=== PATIENT | female | born 1945 | race African-American/Black ===

== ENCOUNTER 2016-09-25 13:20 | Inpatient (IN) | payer OTHER ==
[~2016-09-25] VITALS: Ht 170.2 cm; Wt 83.5 kg
--- NOTE | ~2016-09-25 | HC ---
[facility] [place] [address] CONSULTATION Name: BRAYAN JANG Room #: 456-P [facility] IN .R.#: [id number] Admission: 09/25/16 Attend Phys: Shivani Jiménez MD Discharge: 09/26/16 Date of : 49 Report #: [id number] THIS REPORT FOR: //name// CC: Sarah Jiménez DATE OF SERVICE: 09/25/2016 TYPE OF REPORT: Nephrology consultation. ATTENDING PHYSICIAN: Shivani Jiménez M.D. REASON FOR CONSULTATION: [id number]-[id number] renal failure. HISTORY OF PRESENT ILLNESS: This patient had surgery for ovarian cancer, complete hysterectomy 3 years ago. At that time, she refused chemotherapy. She has had recurrence this year and elected for hospice and she has been on hospice with comfort measures for the last 3 months and as far as we know has had normal renal function. She has become progressively ill with nausea and vomiting, poor appetite and poor intake. She has had progressive swelling of her lower extremities, decreased urine output and weakness and comes to the Emergency Room and was found to have potassium of 7, creatinine of 10.8 and BUN of 67. CT scan shows marked bilateral hydronephrosis with infiltrating tumor mass throughout the pelvis including the rectosigmoid, bladder and ureters. She has retroperitoneal nodes as well. PAST MEDICAL HISTORY: Aside from the ovarian cancer, she has been reasonably okay. She has had some history of hypertension in the past. 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 ALLERGIES: Reportedly to PENICILLIN. HOME MEDICATIONS: Include thyroid replacement and omeprazole. She has been on oxycodone through the hospice. REVIEW OF SYSTEMS: GENERAL: She has been feeling poorly. EYES: Her vision is reasonably good. ENT: Hearing okay. Swallows okay. ENDOCRINE: No diabetes or thyroid disease. RESPIRATORY: She was short of breath early, but it is better now. CARDIAC: She has had no chest pain, angina, myocardial infarction or other heart problems. GASTROINTESTINAL: No nausea, vomiting or diarrhea. [facility] [address] [place] [address] CONSULTATION Name: LAINEBRAYAN Room #: 456-P [facility] [id number] Admission: 09/25/16 Attend Phys: Shivani Jiménez MD Discharge: 09/26/16 Date of : 49 Report #: [id number] GENITOURINARY: She has had the decreased urination as mentioned. No history of renal stone. NEUROLOGICAL: No seizure, syncope or stroke. PHYSICAL EXAMINATION: VITAL SIGNS: This is an ill-appearing woman. She is quite tremulous and weak. SKIN: Otherwise, unremarkable. SKELETAL: Extremely swollen from the waist on down with pitting edema. HEENT: Extraocular movements are full. Vision is intact. Hearing is intact. No scleral icterus. Mucous membranes are dry. NECK: Veins are flat. CHEST: Clear. HEART: Regular. ABDOMEN: Shows a firm mass in the lower abdomen, somewhat tender. EXTREMITIES: Again showed pitting edema. NEUROLOGICAL: Diffuse weakness. LABORATORY DATA: Remarkable for a hemoglobin of 9.3, white count 9.6 and platelets 249. Sodium 136, potassium 7, chloride 100, bicarbonate 25, creatinine 10.8 and BUN 67. ASSESSMENT AND PLAN: Davgn-wa-lyawsuv kidney disease. 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 She has been on hospice, recently recommended palliative care, also talked about the possibly of dialysis and/or nephrostomy tube, both of which would likely palliate the situation for a short period of time but will not alleviate her ongoing and difficult problem and terminal situation. We will certainly leave this decision up to the patient and her family and we will go from there. <ELECTRONICALLY SIGNED> By: Zoltan Gonzalez MD 10/08/16 1126 1757 0100 Zoltan Gonzalez MD /nt
--- NOTE | ~2016-09-25 | EKG ---
[address] [place] [address] ELECTROCARDIOGRAM REPORT Name: JANGBRAYAN Room #: [facility]#: [id number] Admission: 09/25/16 Attend Phys: Discharge: Date of : 49 Report #: [id number] THIS REPORT FOR: //name// [facility] ED Test Date: 2016-09-25 Test Time: 15:41:16 Pat Name: BRAYAN JANG Department: Room: Gender: F Cvicu Nurse: Leonard LEAL : 1945 Requested By: Kaela Smalls Order Number: [id number] MD: Alex Reeys Measurements Intervals [place] Rate: 106 P: 56 MT: 123 QRS: -5 QRSD: 74 T: 35 QT: 319 QTc: 424 Interpretive Statements Sinus tachycardia Nonspecific T wave abnormalities No previous ECG available for comparison Electronically Signed On 09-25-2016 17:05:16 SURVEY ANALYST by Alex Reyes [email or web address] <ELECTRONICALLY SIGNED> By: Alex Reyes MD 09/25/16 1705 1541 1541 Alex Reyes MD /EPI
--- NOTE | ~2016-09-25 | H ---
[facility] [place] [address] HISTORY AND PHYSICAL Name: BRAYAN JANG Room #: 456-P [facility] IN .R.#: [id number] Admission: 09/25/16 Attend Phys: Shivani Jiménez MD Discharge: 09/26/16 Date of : 49 Report #: [id number] THIS REPORT FOR: //name// CC: Sarah Jiménez DATE OF SERVICE: 09/25/2016 The patient was admitted to the hospital on 09/25/2016 CHIEF COMPLAINT: Left flank pain. HISTORY OF PRESENT ILLNESS: The patient is a 71-year-old female with metastatic ovarian cancer, diagnosis in 2013. The patient refused the treatment, and she is currently in hospice. She came to the Emergency Room for increased left flank and abdominal pain. She was found to have renal failure, with creatinine greater than 10, and potassium of 7.0. She had normal creatinine a few months ago according to our records. The patient received insulin and glucose as well as albuterol treatment in the Emergency Room. She is getting Kayexalate here on the floor. The patient is alert an awake, except that pain, she has no complaints. She has generalized weakness, and chronic lower extremity swelling. The patient was also diagnosed with DVTs in the past. She states that just yesterday she was told that she had no DVT, and she did not need any treatment, so she is suspended taking Xarelto. The patient had no arrhythmias, and no significant EKG abnormalities. Repeat potassium is currently pending. The patient states that she does not want aggressive treatment, but she is not sure if she wants to proceed with a nephrostomy tube or hemodialysis, that was offered to her in the Emergency Room. PAST MEDICAL HISTORY: 1. Metastatic ovarian cancer. 2. Hypothyroidism. 3. Questionable DVT. HOME MEDICATIONS: Reviewed and documented in the patient's chart. As noted, the patient is currently on Xarelto, that she discontinued yesterday because she was told that she no longer had DVT. FAMILY HISTORY: Reviewed and not pertinent to the patient's current condition. SOCIAL HISTORY: The patient does not smoke cigarettes and does not drink alcohol. [facility] [address] [place] [address] HISTORY AND PHYSICAL Name: BRAYAN JANG Room #: 456-P [facility]#: [id number] Admission: 09/25/16 Attend Phys: Shivani Jiménez MD Discharge: 09/26/16 Date of : 49 Report #: [id number] REVIEW OF SYSTEMS: As above in HPI section, all others negative. PHYSICAL EXAMINATION: GENERAL: The patient is an elderly female who is in no apparent distress. She looks comfortable. VITAL SIGNS: Blood pressure is 147/78, heart rate is 117 and regular, respiration is between 10 and 12, and temperature is 98.3. HEENT: Pupils are equal, and reactive to light. Ocular movements are intact. The patient has no scleral icterus. RESPIRATORY: Chest moves symmetrically with breathing. Respiratory sounds are normal. CARDIOVASCULAR: The patient has regular rhythm and rate. She has no murmurs, gallops or rubs. ABDOMEN: Soft, slightly tender, more on the left side. Masses are not palpated. Hepatomegaly is not palpated. MUSCULOSKELETAL: Range of motion is normal. EXTREMITIES: The patient has bilateral lower extremity edema, more on the right side. She has no cyanosis or clubbing. NEUROLOGIC: The patient is alert and oriented x 3. Her examination is nonfocal. SKIN: Reveals no skin lesions. LABORATORY DATA: Basic metabolic profile revealed potassium of 7.0, and creatinine of 10.8. BUN is 67. Albumin is 2.9. Troponin is undetectable. CBC: White count is normal. Hemoglobin is 9.3, and hematocrit of 27.9. Platelets are normal. CT scan of the abdomen reveals bilateral hydronephrosis, anasarca, and retroperitoneal mass as well as adenopathy. ASSESSMENT AND PLAN: 1. A 71-year-old female with metastatic ovarian cancer diagnosed in 2013, who refused treatment, and who is currently under hospice treatment. As noted, the patient came to the Emergency Room for abdominal pain, and she was incidentally found to have acute renal failure, as well as severe hyperkalemia. 2. Acute renal failure and severe hyperkalemia, most likely due to postobstructive nephropathy. CT scan of the abdomen shows bilateral hydronephrosis and hydroureter now. The patient is already seen by production officer and consultation in very much appreciated. As noted, the patient did receive treatment for hyperkalemia, as detailed above in HPI section. She is supposed to get Kayexalate, and potassium will be followed closely. So far, the patient has no significant EKG changes. Since the patient is on hospice, different treatment options were discussed with her, including aggressive treatment with nephrostomy placement, or palliative hemodialysis. The patient is considering these options, and she will notify us [facility] [address] [place] [address] HISTORY AND PHYSICAL Name: BRAYAN JANG Room #: 456-P [facility] M.R.#: [id number] Admission: 09/25/16 Attend Phys: Shivani Jiménez MD Discharge: 09/26/16 Date of : 49 Report #: [id number] about her decision later. 3. Metastatic ovarian cancer. As noted, the patient is on hospice, and she does not want treatment for this. 4. Questionable deep venous thrombosis. As noted, the patient was taking Xarelto up until yesterday. She states that she was told that she no longer had deep venous thrombosis, so she did not need treatment. Xarelto is discontinued. The patient has bilateral lower extremity swelling, which could be due to the mass effect. I am ordering Doppler ultrasonography. Different treatment options were discussed with the patient for deep venous thrombosis, but if the patient decides to go on treatment in the case she has deep venous thrombosis, she will need a heparin drip and Coumadin given her renal failure. 5. Deep venous thrombosis prophylaxis. At this stage, we will use subcutaneous heparin, until lower extremity Doppler results is available. 6. Metastatic ovarian cancer, and related pain. The patient will be continued on fentanyl patch 75 mcg a day, and p.r.n. medications will be used for breakthrough pain. <ELECTRONICALLY SIGNED> By: Shivani Jiménez MD 09/30/162031 24 20 Shivani Jiménez MD /nt
[~2016-09-25 13:20] MED LIST: ASPIR 8181 MG; BIOTIN5 MG; CALCIUM 500 +1 EAC5; LEVOTHYROXIN0.025 MG PO; NORCO 5-325 TA1 EACH PO; PRILOSEC 10MG C10 MG PO; ZOCOR20 MG PO
[2016-09-25 13:21] VITALS: BP 141/78
[2016-09-25] MEDS ORDERED: DOC-Q-LACE100 MG PO (13:36)
[2016-09-25] MEDS ORDERED: COMPAZINE10 MG PO (13:37)
[2016-09-25] MEDS ORDERED: OXYCODONE HCL15 MG PO (13:37)
[2016-09-25] MEDS ORDERED: DEXAMETHASONE 44 M1 PO (13:39)
[2016-09-25 14:59] LABS: ABSOLUTE NEUTROPHILS 7.2 thou/uL (1.4-8.2); BASOPHILS 0.7 % (0.0-2.0); EOSINOPHILS 0.8 % (0.0-3.0); HEMATOCRIT 27.9 % (37.0-47.0); HEMOGLOBIN 9.3 gm/dL (12.0-15.0); LYMPHOCYTES 13.2 % (24.0-44.0); MCHC 33.2 % (28.0-37.0); MCV 105.4 fL (80.0-100.0); MONOCYTES 10.5 % (1.0-8.0); PLATELET COUNT 249 thou/uL (150-400); POLYS 74.8 % (36.0-66.0); RBC 2.65 mil/uL (4.20-5.00); RDW 14.4 % (10.5-14.5); WBC 9.6 thou/uL (4.0-11.0)
[2016-09-25 15:13] LABS: ALBUMIN 2.9 g/dL (3.4-5.0); CALCIUM 9.3 mg/dL (8.5-10.1); CREATININE 10.8 mg/dL (0.6-1.3); TOTAL BILIRUBIN 0.5 mg/dL (<0.1-1.0); TOTAL PROTEIN 7.4 g/dL (6.4-8.2)
[2016-09-25 15:35] LABS: MANUAL DIFF NO
[2016-09-25 18:51] LABS: APTT 20.8 Seconds (24.5-32.8); INR 1.1; PROTIME 11.1 Seconds (9.3-11.4)
[2016-09-25 18:56] VITALS: BP 145/58
[2016-09-25 19:10] VITALS: BP 117/63
[2016-09-26 01:01] VITALS: BP 120/65
[2016-09-26 04:18] VITALS: BP 134/75
[2016-09-26 04:30] LABS: ABSOLUTE NEUTROPHILS 5.4 thou/uL (1.4-8.2); BASOPHILS 0.5 % (0.0-2.0); EOSINOPHILS 0.8 % (0.0-3.0); HEMATOCRIT 23.9 % (37.0-47.0); HEMOGLOBIN 7.9 gm/dL (12.0-15.0); LYMPHOCYTES 14.8 % (24.0-44.0); MCH 34.7 pg (26.0-34.0); MONOCYTES 7.1 % (1.0-8.0); PLATELET COUNT 248 thou/uL (150-400); POLYS 76.8 % (36.0-66.0); RBC 2.28 mil/uL (4.20-5.00); RDW 14.7 % (10.5-14.5)
[2016-09-26 04:39] LABS: MANUAL DIFF NO
[2016-09-26 04:44] LABS: CALCIUM 9.1 mg/dL (8.5-10.1); CREATININE 11.1 mg/dL (0.6-1.3)
[2016-09-26 04:57] LABS: POTASSIUM 6.8 mmol/L (3.5-5.1)
[2016-09-26 08:00] VITALS: BP 135/78
[2016-09-26 09:38] LABS: CREATININE 11.2 mg/dL (0.6-1.3)
[2016-09-26 09:40] LABS: POTASSIUM 6.5 mmol/L (3.5-5.1)
[2016-09-26 14:04] VITALS: BP 135/78
[2016-09-26 14:20] VITALS: BP 135/78
== END 2016-09-26 15:25 | disposition hospice, inpatient (51) | DRG 683 ==
LOC: ER 13:20 → EROBS 17:40 → 4W 18:29
PROVIDERS: Emergency Medicine; Hospitalist; Internal Medicine Endocrinology, Diabetes & Metabolism
DX: I12.9 Hypertensive chronic kidney disease with stage 1 through stage 4 chronic kidney disease, or unspecified chronic kidney disease (principal); N17.9 Acute kidney failure, unspecified; N13.4 Hydroureter; C79.60 Secondary malignant neoplasm of unspecified ovary; K56.60 Unspecified intestinal obstruction; C56.9 Malignant neoplasm of unspecified ovary; N13.8 Other obstructive and reflux uropathy; N13.30 Unspecified hydronephrosis; K21.9 Gastro-esophageal reflux disease without esophagitis; E87.5 Hyperkalemia; E03.9 Hypothyroidism, unspecified; N18.9 Chronic kidney disease, unspecified; Z86.73 Personal history of transient ischemic attack (TIA), and cerebral infarction without residual deficits; Z88.0 Allergy status to penicillin; Z90.710 Acquired absence of both cervix and uterus; Z98.890 Other specified postprocedural states; Z86.718 Personal history of other venous thrombosis and embolism
CPT/HCPCS: 10045